=== PATIENT | female | born 1990 ===

== ENCOUNTER 2020-10-13 10:40 | Inpatient (IN) ==
[2020-10-13] MEDS ORDERED: FAMOTIDINE 20 MG/2 ML VIAL IV ONE (12:44)
[2020-10-13] MEDS ORDERED: ceFAZolin 2,000 MG in PREMIX 1 EACH IV ONE (12:44)
[2020-10-13] MEDS ORDERED: CITRIC ACID/SODIUM CITRATE 30 ML UDCUP PO ONE (12:44)
[2020-10-13] MEDS ORDERED: OXYTOCIN/LR 30 UNIT/1,000 ML BAG IV ONE (12:50)
[2020-10-13] MEDS ORDERED: OXYTOCIN 10 UNIT/ML VIAL IM ONE (12:50)
[2020-10-13] MEDS: LACTATED RINGERS 1,000 ML IV SCH ×2 (13:02→14:45)
[2020-10-13 13:04] LABS: Basophils % 0.5 % (0.0-0.8); Eosinophils # 0.1 10*3/uL (0.0-0.87); Eosinophils % 0.9 % (0.00-10.9); Hematocrit 34.2 VOL% (35.7-47.0); Hemoglobin 12.1 GM/DL (12.0-16.0); Immature Granulocytes % 0.8 %; Immature Granulocytes Absolute 0.06 #; Lymphocytes # 1.9 10*3/uL (1.4-4.0); Lymphocytes % 24.7 % (21.3-54.2); Mean Corpuscular HGB Conc 35.4 GM/DL (32-36); Mean Corpuscular Volume 88.4 FL (87-102); Mean Platelet Volume 10.1 FL (9.6-12.0); NRBC # 0.02 10*3/uL; Neutrophils % 65.1 % (38.7-73.9); Platelet Count 248 T/CUMM (130-400); Red Blood Count 3.87 MC/CUMM (3.8-5.5); Red Cell Distribution Width 13.6 % (9.3-17.3); White Blood Count 7.6 T/CUMM (4-12)
[2020-10-13 13:51] LABS: Albumin 2.7 G/DL (3.4-5.0); Bilirubin,Direct 0.12 MG/DL (0.0-0.20); Bilirubin,Total 0.4 MG/DL (0.2-1.0); Calcium 8.6 MG/DL (8.5-10.1); Osmolality,Calculated 274.5 MOS/KG (273-304); Potassium 4.2 MMOL/L (3.5-5.1); Total Protein 7.2 G/DL (6.4-8.3); Uric Acid 5.5 MG/DL (2.6-6.0)
[2020-10-13 14:01] LABS: INR 0.9; PT Patient Result 9.9 SECS (9.8-11.9)
[2020-10-13] MEDS ORDERED: PHENYLEPHRINE 1 MG/10 ML SYRINGE IV ONE (14:53)
[2020-10-13] MEDS ORDERED: MORPHINE 10 MG/10 ML VIAL ONE (14:53)
[2020-10-13] MEDS ORDERED: BUPIVACAINE SPINAL 0.75% 2 ML AMP SPINAL ONE (14:53)
[2020-10-13] MEDS ORDERED: ONDANSETRON 4 MG/2 ML VIAL ONE (14:53)
[2020-10-13] MEDS ORDERED: fentaNYL 100 MCG/2 ML VIAL ONE (14:53)
[2020-10-13 15:51] LABS: Bacteria,Urine Occasional /HPF (Few); Bilirubin,Urine Negative (Negative); Blood, Urine Negative (Negative); Glucose,Urine (UA) Negative (Negative); Ketones,Urine Negative (Negative); Nitrite,Urine Negative (Negative); Protein,Urine Negative; RBC,Urine 1 /HPF (0-4); Squamous Epithelial Cell,Urine Occasional /HPF (0-10); Urine Appearance CLEAR (Clear); Urine Color Straw (Yellow); Urine Specific Gravity 1.009 (1.001-1.035); Urine Urobilinogen < 2.0 EU/DL (0.2-1.0); WBC,Urine <1 /HPF (0-6)
[2020-10-13 15:53] LABS: Cord Arterial Blood HCO3 22.6 MMOL/L
[2020-10-13 15:59] LABS: Cord Venous Blood HCO3 23.6 MMOL/L; Cord Venous Blood PCO2 45.4 MMHG; Cord Venous Blood PO2 38.6
[2020-10-13] MEDS ORDERED: ONDANSETRON 4 MG/2 ML VIAL IV PRN (16:21)
[2020-10-13] MEDS ORDERED: ACETAMINOPHEN 325 MG TABLET PO PRN (16:21)
[2020-10-13] MEDS ORDERED: SIMETHICONE CHEW 80 MG TABLET PO PRN (16:21)
[2020-10-13] MEDS ORDERED: RHO(D) IMMUNE GLOBULIN 300 MCG SYRINGE IM ONE (16:21)
[2020-10-13] MEDS ORDERED: OXYTOCIN/LR 20 UNIT/1,000 ML BAG IV ONE (16:21)
[2020-10-13] MEDS ORDERED: LACTATED RINGERS 1,000 ML IV SCH (16:30)
[2020-10-13] MEDS ORDERED: NIFEdipine 10 MG CAPSULE PO ONE ×2 (17:36→18:16)
[2020-10-13] MEDS: DOCUSATE SODIUM 100 MG CAPSULE PO SCH (21:22)
[2020-10-13] MEDS: ceFAZolin 1,000 MG in SYRINGE 1 EACH IV SCH (22:27)
[2020-10-14 01:03] LABS: Basophils # 0.1 10*3/uL (0.0-0.2); Basophils % 0.4 % (0.0-0.8); Eosinophils % 0.2 % (0.00-10.9); Hematocrit 36.4 VOL% (35.7-47.0); Hemoglobin 12.5 GM/DL (12.0-16.0); Immature Granulocytes % 0.5 %; Immature Granulocytes Absolute 0.06 #; Lymphocytes # 1.8 10*3/uL (1.4-4.0); Lymphocytes % 14.9 % (21.3-54.2); Mean Corpuscular HGB Conc 34.3 GM/DL (32-36); Mean Corpuscular Volume 87.9 FL (87-102); Mean Platelet Volume 9.9 FL (9.6-12.0); Platelet Count 251 T/CUMM (130-400); Red Blood Count 4.14 MC/CUMM (3.8-5.5); Red Cell Distribution Width 13.4 % (9.3-17.3); White Blood Count 12.2 T/CUMM (4-12)
[2020-10-14] MEDS: ceFAZolin 1,000 MG in SYRINGE 1 EACH IV SCH (06:20)
[2020-10-14] MEDS: IBUPROFEN 800 MG TABLET PO PRN ×2 (06:20→17:46)
[2020-10-14 08:12] LABS: RPR Confirm - Less than 1 yr REACTIVE (Nonreactive)
[2020-10-14 08:37] LABS: Basophils % 0.4 % (0.0-0.8); Eosinophils # 0.1 10*3/uL (0.0-0.87); Eosinophils % 0.9 % (0.00-10.9); Hematocrit 35.1 VOL% (35.7-47.0); Hemoglobin 11.9 GM/DL (12.0-16.0); Immature Granulocytes % 0.7 %; Immature Granulocytes Absolute 0.07 #; Lymphocytes # 2.3 10*3/uL (1.4-4.0); Lymphocytes % 21.4 % (21.3-54.2); Mean Corpuscular HGB Conc 33.9 GM/DL (32-36); Mean Corpuscular Volume 88.9 FL (87-102); Mean Platelet Volume 9.5 FL (9.6-12.0); Monocytes % 5.5 % (1.7-12.7); Neutrophils % 71.1 % (38.7-73.9); Platelet Count 245 T/CUMM (130-400); Red Blood Count 3.95 MC/CUMM (3.8-5.5); Red Cell Distribution Width 13.5 % (9.3-17.3); White Blood Count 10.8 T/CUMM (4-12)
[2020-10-14] MEDS: MULTIVITAMIN (PRENATAL) TABLET PO SCH (08:51)
[2020-10-14] MEDS: MAGNESIUM HYDROXIDE SUSP 30 ML UDCUP PO PRN ×3 (08:51→20:15)
[2020-10-14] MEDS: DOCUSATE SODIUM 100 MG CAPSULE PO SCH ×2 (08:52→20:15)
[2020-10-14] MEDS: METOCLOPRAMIDE 10 MG TABLET PO SCH ×2 (08:52→17:44)
[2020-10-14] MEDS ORDERED: BISACODYL 10 MG SUPP RECTAL PRN (20:10)
[2020-10-15] MEDS: METOCLOPRAMIDE 10 MG TABLET PO SCH ×2 (00:08→07:50)
[2020-10-15] MEDS: IBUPROFEN 800 MG TABLET PO PRN ×2 (02:51→10:55)
[2020-10-15 08:13] VITALS: BP 127/73
[2020-10-15] MEDS: DOCUSATE SODIUM 100 MG CAPSULE PO SCH (09:22)
[2020-10-15] MEDS: MULTIVITAMIN (PRENATAL) TABLET PO SCH (09:38)
[2020-10-15] MEDS ORDERED: DIPH/TET/ACEL PERT BOOSTER VACCINE 0.5 ML VIAL IM ONE (11:22)
[2020-10-15] MEDS: MAGNESIUM HYDROXIDE SUSP 30 ML UDCUP PO PRN (11:40)
== END 2020-10-15 15:15 | disposition home or self-care (01) | DRG 540 ==
LOC: N.LDOUT 10:40 → N.LD 10:46 → N.OB 23:48
PROVIDERS: ADMIT Obstetrics & Gynecology; ATTEND Obstetrics & Gynecology
PROC: LDCSECT (ICD-10-PCS; 2020-10-13 14:50)